=== PATIENT | male | born 1955 ===

== ENCOUNTER 2016-12-13 09:08 | Inpatient (IN) | payer MEDICAID, MEDICARE ==
[2016-12-08 12:41] VITALS: BMI 45.4
[2016-12-13] MEDS ORDERED: Bupivacaine HCl 0.25% PF (10 ml) Inj ONE (10:34)
[2016-12-13] MEDS ORDERED: ceFAZolin 1 gm FROZEN Premix 0 GM/0 ML ML IVPB ONE (10:35)
[2016-12-13] MEDS ORDERED: Lactated Ringer's 1,000 ML IV ONE ×2 (11:23→13:01)
[2016-12-13] MEDS ORDERED: ceFAZolin 1 gm FROZEN Premix 2 GM/100 ML ML IVPB ONE (11:35)
[2016-12-13] MEDS ORDERED: Propofol 10 mg/ml Inj (20 ML) ONE ×2 (11:35→12:59)
[2016-12-13] MEDS ORDERED: Midazolam 2 MG/2 ML VIAL ONE (11:35)
[2016-12-13] MEDS ORDERED: ePHEDrine 50 mg/ml Inj ONE (12:27)
[2016-12-13] MEDS ORDERED: Rocuronium 10 mg/ml (5 ml) ONE (12:28)
[2016-12-13] MEDS ORDERED: HYDROmorphone 0.5 mg/0.5 ml ISec IVP PRN (13:47)
[2016-12-13] MEDS ORDERED: Oxycodone/Acetaminophen 5/325 mg Tab PO PRN (14:00)
[2016-12-13] MEDS ORDERED: Neostigmine Methylsulfate 3mg/3ml Syringe IV ONE (14:15)
[2016-12-13] MEDS ORDERED: HYDROmorphone 0.5 mg/0.5 ml ISec IVP ONE (14:34)
--- NOTE | 2016-12-13 14:48 | OP ---
PROCEDURE DATE: 12/13/2016 PREOPERATIVE DIAGNOSIS: Large right inguinal scrotal hernia. POSTOPERATIVE DIAGNOSIS: Large right inguinal scrotal hernia. PROCEDURE PERFORMED: Complex repair of large right inguinal scrotal hernia with mesh, removal of cor d lipoma, repair of a testicular blood vessel. SURGEON: Lio Fonseca MD. BOILER FITTER: Dr. Mckeon. ANESTHESIA: General. ESTIMATED BLOOD LOSS: 100 mL. POSTOPERATIVE CONDITION: Stable. INDICATIONS FOR SURGERY: This is a 60-year-old morbidly obese Carl male with a mass of right inguin al scrotal hernia, which he states he has had for 25 years. The patient recently got insurance and n ow wants to have it fixed. He complains of obvious pain from the site. GROSS FINDINGS: There was a mass of right inguinal scrotal hernia. It contained a large amount of o mentum. An omentectomy had to be performed in order to reduce the hernia. It was a very difficult r epair and 3 hernia plugs had to be sewn together because the hernia floor was basically obliterated. PROCEDURE: The patient taken to the operating room and placed in the supine position. His pannus wa s taped cephalad and out of the inguinal region. A standard very large inguinal incision was made. The external oblique aponeurosis was opened and the massive hernia was encountered. Using careful bl unt dissection within the scrotal sac, the hernia along with the testicle were delivered from the sac , testicle being closely associated with the hernia. The appropriate plane was found in the testicul ar contents and the testicle was dissected off of the hernia sac back into the scrotum. The sac was then opened and the omentectomy was performed using an Endo cautery device. The hernia sac was also transected using the same device. Once everything was reduced, there was a cord lipoma noted and thi s was excised and sent for specimen. The hernia contents were carefully and meticulously reduced int o the abdomen. Three hernia plugs, extra-large ProLoop mesh, was sewn together for the hernia repair and placed in the hernia defect. Careful repair was performed sewing the plug to the conjoined tend on superiorly, pubic tubercle laterally and the iliopubic tract inferiorly. Once the repair had been completely done, it was inspected and found to be adequate. The wound was irrigated with copious am ounts of saline solution. Bleeding testicular vessel was repaired and flow was confirmed by Doppler. A Ron drain was left in the scrotal sac due to the large potential space from the hernia site. T he wound was irrigated with copious amounts of saline solution and closed in layers. To close the de ad space, it was widely mobilized and adjacent tissue transfer closure was performed by using multipl e layers of Monocryl, subcuticular Monocryl, and skin clips. The patient tolerated the procedure wel l, returned to recovery room in stable condition. Lio Fonseca MD cc: [id number] TT: 12/13/2016 14:47:30 rain
--- NOTE | 2016-12-13 17:16 | CP.PCM.CON ---
History of Present Illness - History of Present Illness History of Present Illness: Medical Consult Note- Dr Blank's service HPI: 60 year old male with PMHx of HTN and DM presents s/p right inguinal hernia repair today with Dr Fonseca. Medicine team was consulted for medical management. Patient states that he first developed his right inguinal hernia 25 years ago when he was lifting heavy donal material. The hernia recently started to cause him pain so he decided to get it surgically repaired. Patient states that he feels well overall after the surgery and does not have abdominal pain while at rest. Patient's abdominal pain presents with any type of movement. Denies fever, chills, nausea, vomiting, diarrhea, chest pain, palpitations, shortness of breath, leg pain, numbness, tingling, headache, dizziness, confusion, and cough. 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 absent: Chills, Fever - EENT Eyes: As Per HPI. absent: Blurred Vision, Change in Vision Ears: As Per HPI. absent: Dizziness Nose/Mouth/Throat: As Per HPI. absent: Sore Throat - Cardiovascular Cardiovascular: As Per HPI. absent: Chest Pain, Dyspnea, Edema, Lightheadedness , Palpitations - Respiratory Respiratory: As Per HPI. absent: Cough, Dyspnea, Wheezing - Gastrointestinal Gastrointestinal: As Per HPI, Abdominal Pain. absent: Diarrhea, Nausea, Vomiting - Genitourinary Genitourinary: As Per HPI. absent: Dysuria - Musculoskeletal Musculoskeletal: As Per HPI. absent: Muscle Weakness, Numbness, Tingling - Integumentary Integumentary: As Per HPI. absent: Rash - Neurological Neurological: As Per HPI. absent: Dizziness, Headaches, Weakness - Psychiatric Psychiatric: As Per HPI Past Patient History - Past Medical History & Family History Past Medical History?: Yes - Past Social History Smoking Status: Former Smoker - CARDIAC Hx Cardiac Disorders: Yes Hx Hypertension: Yes - PULMONARY Hx Respiratory Disorders: Yes Other/Comment: HX: "BRONCHIAL ASTHMA"-NEVER HOSPITALIZED-NO INHALERS - NEUROLOGICAL Hx Neurological Disorder: Yes Hx Vertigo: Yes - HEENT Hx HEENT Problems: No - RENAL Hx Chronic Kidney Disease: No - ENDOCRINE/METABOLIC Hx Endocrine Disorders: Yes Hx Diabetes Mellitus Type 1: Yes - HEMATOLOGICAL/ONCOLOGICAL Hx Blood Disorders: No - INTEGUMENTARY Hx Dermatological Problems: Yes Other/Comment: HX: INJURY (CUT) TO LEFT OUTER FOREARM-STICHES DONE-WOUND WELL HEALED. - MUSCULOSKELETAL/RHEUMATOLOGICAL Hx Musculoskeletal Disorders: Yes Hx Back Pain: Yes - GASTROINTESTINAL Hx Gastrointestinal Disorders: No - GENITOURINARY/GYNECOLOGICAL Hx Genitourinary Disorders: Yes Other/Comment: Inguinal Hernia, Right - PSYCHIATRIC Hx Psychophysiologic Disorder: No - SURGICAL HISTORY Hx Surgeries: No - ANESTHESIA Hx Anesthesia: No Has any member of the family had a problem w/ anesthesia?: No Meds Allergies/Adverse Reactions: Allergies Allergy/AdvReac Type Severity Reaction Status Date / Time No Known Allergies Allergy Verified 12/08/16 12:39 - Medications Medications: Current Medications Docusate Sodium (Colace) 100 mg PO BID [facility] Enoxaparin Sodium (Lovenox) 40 mg SC DAILY [facility] Hydromorphone HCl (Dilaudid) 0.5 mg IVP Q15M PRN PRN Reason: Pain, severe (8-10) Last Admin: 12/13/16 14:10 Dose: 0.5 mg Ketorolac Tromethamine (Toradol) 30 mg IVP Q6 PRN PRN Reason: pain Stop: 12/18/16 14:01 Oxycodone/Acetaminophen (Percocet 5/325 Mg Tab) 2 tab PO Q4H PRN PRN Reason: pain Stop: 12/16/16 14:01 Pantoprazole Sodium (Protonix Inj) 40 mg IVP DAILY [facility] Physical Exam - Constitutional Appears: Well, Non-toxic, No Acute Distress - Head Exam Head Exam: ATRAUMATIC, NORMOCEPHALIC - Eye Exam Eye Exam: EOMI, Normal appearance, PERRL - ENT Exam ENT Exam: Mucous Membranes Moist, Normal Exam - Neck Exam Neck exam: Positive for: Normal Inspection - Respiratory Exam Respiratory Exam: Clear to Auscultation Bilateral, NORMAL BREATHING PATTERN. absent: Rales, Rhonchi, Wheezes, Respiratory Distress - Cardiovascular Exam Cardiovascular Exam: REGULAR RHYTHM, +S1, +S2. absent: Irregular Rhythm, Systolic Murmur - GI/Abdominal Exam GI & Abdominal Exam: Normal Bowel Sounds, Soft, Tenderness (ttp of right abdomen and close to inguinal incision sit ). absent: Distended, Firm, Guarding Additional comments: Germain drain in right lower abdomen with serosangenous fluid, dressing dry and intact - Extremities Exam Extremities exam: Positive for: full ROM, normal inspection, pedal pulses present. Negative for: pedal edema, tenderness - Neurological Exam Neurological exam: Alert, CN II-XII Intact, Oriented x3 - Psychiatric Exam Psychiatric exam: Normal Affect, Normal Mood - Skin Skin Exam: Dry, Intact, Normal Color, Warm Results - Vital Signs Recent Vital Signs: Last Vital Signs Temp 97.4 F L 12/13/16 13:44 Pulse 77 12/13/16 16:00 Resp 18 12/13/16 16:00 BP 115/59 L 12/13/16 16:00 Pulse Ox 99 12/13/16 16:00 - Labs Labs: Laboratory Results - last 24 hr 12/13/16 09:43 POC Glucose (mg/dL) 122 H Assessment & Plan - Assessment and Plan (Free Text) Assessment: 1. HTN Patient's bp controlled today without medication Will start home meds tomorrow: Norvasc 5mg PO daily, HCTZ 25mg PO daily, Lisinopril 30mg PO daily (with holding parameters) Monitor and adjust meds as needed 2. DM ISS Accuchecks Glipizide 5mg PO BID Metformin 500mg PO daily 3. Vertigo Currently asymptomatic Meclizine 25mg PO daily prn 4. Asthma Patient does not take any home medications Currently well controlled, no acute intervention Monitor and will start meds if needed 5. Right inguinal hernia s/p right inguinal hernia repair management per Dr Fonseca Monitor germain drain output Pain management Liquid diet and advance to full diet tomorrow PT eval 6. Prophylactic measures Lovenox 40mg SC daily Protonix 40mg IV daily Colace 100mg PO BID [facility]
[2016-12-13] MEDS: GlipiZIDE 5 mg SR Tab PO SCH (18:11)
[2016-12-13] MEDS: (Novolin R) Insulin Human Regular 100 units/ml vial SC SCH (21:41)
[2016-12-14 06:16] LABS: BASO % 0.3 % (0.0-2.0); EOS % 0.1 % (0.0-4.0); LYMPH # 2.6 K/uL (1.0-4.3); LYMPH % 23.1 % (20.0-40.0); MEAN CELL VOLUME 82.1 fL (80.0-94.0); MEAN CORPUSCULAR HEMOGLOBIN 27.6 pg (27.0-31.0); MEAN CORPUSCULAR HGB CONC 33.6 g/dL (33.0-37.0); MEAN PLATELET VOLUME 9.7 fL (7.2-11.7); MONO # 1.7 K/uL (0.0-0.8); MONO % 14.5 % (0.0-10.0); NRBC % 0.1 % (0.0-2.0); RED CELL DISTRIBUTION WIDTH 13.5 % (11.5-14.5); WHITE BLOOD COUNT 11.4 K/uL (4.8-10.8)
[2016-12-14 07:48] LABS: CHLORIDE 97 mmol/L (98-107); POTASSIUM 3.8 mmol/L (3.6-5.2); SODIUM 134 mmol/L (132-148)
[2016-12-14 07:51] LABS: BLOOD UREA NITROGEN 21 mg/dL (9-20); CARBON DIOXIDE 26 mmol/L (22-30); GFR AFRICAN-AMERICAN > 60
[2016-12-14 07:52] LABS: CALCIUM 8.2 mg/dl (8.6-10.4); GLUCOSE,RANDOM 219 mg/dL (75-110)
[2016-12-14] MEDS: (Novolin R) Insulin Human Regular 100 units/ml vial SC SCH ×4 (08:35→21:53)
[2016-12-14] MEDS: GlipiZIDE 5 mg SR Tab PO SCH ×2 (10:04→17:17)
[2016-12-14] MEDS: Enoxaparin 40 mg Syringe SC SCH (10:07)
[2016-12-14] MEDS: Oxycodone/Acetaminophen 5/325 mg Tab PO PRN ×2 (10:11→17:27)
--- NOTE | 2016-12-14 12:24 | CP.PCM.PN ---
Subjective - Date & Time of Evaluation Date of Evaluation: 12/14/16 Time of Evaluation: 12:00 - Subjective Subjective: resting in bed comfortabbly dressing w dried blood PE unremarkable HERMILA in place stable pod#1 mobilize nurses to change dressing Objective - Vital Signs/Intake and Output Vital Signs (last 24 hours): Temp Pulse Resp BP Pulse Ox 97.3 F L 79 18 95/65 L 96 12/14/16 07:40 12/14/16 07:40 12/14/16 07:40 12/14/16 07:40 12/14/16 07:40 Intake and Output: 12/14/16 12/14/16 06:59 18:59 Intake Total 870 Output Total 950 Balance -80 - Medications Medications: Current Medications Amlodipine Besylate (Norvasc) 5 mg PO DAILY [facility] Docusate Sodium (Colace) 100 mg PO BID [facility] Last Admin: 12/14/16 10:04 Dose: 100 mg Enoxaparin Sodium (Lovenox) 40 mg SC DAILY [facility] Last Admin: 12/14/16 10:07 Dose: 40 mg Glipizide (Glucotrol Xl) 5 mg PO BID [facility] Last Admin: 12/14/16 10:04 Dose: 5 mg Hydrochlorothiazide (Hydrodiuril) 25 mg PO DAILY [facility] Hydromorphone HCl (Dilaudid) 0.5 mg IVP Q15M PRN PRN Reason: Pain, severe (8-10) Last Admin: 12/13/16 14:10 Dose: 0.5 mg Insulin Human Regular (Novolin R) 0 unit SC ACHS [facility] PRN Reason: Protocol Last Admin: 12/14/16 08:35 Dose: 3 unit Ketorolac Tromethamine (Toradol) 30 mg IVP Q6 PRN PRN Reason: pain Stop: 12/18/16 14:01 Lisinopril (Zestril) 30 mg PO DAILY [facility] Meclizine HCl (Antivert) 25 mg PO DAILY [facility] Metformin HCl (Glucophage Xr) 500 mg PO DAILY [facility] Last Admin: 12/14/16 10:06 Dose: 500 mg Oxycodone/Acetaminophen (Percocet 5/325 Mg Tab) 2 tab PO Q4H PRN PRN Reason: pain Stop: 12/16/16 10:01 Last Admin: 04/27/17 10:11 Dose: 2 tab Pantoprazole Sodium (Protonix Inj) 40 mg IVP DAILY [facility] Last Admin: 12/14/16 10:03 Dose: 40 mg Pneumococcal Polyvalent Vaccine (Pneumovax 23 Vaccine) 0.5 ml SC .ONCE ONE Stop: 12/16/16 10:01 - Labs Labs: 12/14/16 06:09 12/14/16 06:09
[2016-12-14] MEDS: Bacitracin Ointment 30 GM TUBE TOP SCH (13:45)
--- NOTE | 2016-12-14 14:06 | CP.PCM.PN ---
<Tyree Young - Last Filed: 12/14/16 14:06> Subjective - Date & Time of Evaluation Date of Evaluation: 12/14/16 Time of Evaluation: 07:10 - Subjective Subjective: PGY-1 Medicine Progress Note for Dr. Blank Patient seen and examined at bedside. no acute event overnight. Patient is resting comfortably in bed. He is POD #1 right inguinal hernia repair. Patient stated that pain is well controlled with medication. Patient is tolerating diet and had a BM yesterday. SIENA drain in place with minimal drainage. Denied fever/ chills, cp, sob, palpitations, abd pain, n/v/d, incontinence and constipation. Objective - Vital Signs/Intake and Output Vital Signs (last 24 hours): Temp Pulse Resp BP Pulse Ox 97.3 F L 79 18 95/65 L 96 12/14/16 07:40 12/14/16 07:40 12/14/16 07:40 12/14/16 07:40 12/14/16 07:40 Intake and Output: 12/14/16 12/14/16 06:59 18:59 Intake Total 870 Output Total 950 10 Balance -80 -10 - Medications Medications: Current Medications Amlodipine Besylate (Norvasc) 5 mg PO DAILY [facility] Bacitracin (Bacitracin) 0 gm TOP DAILY [facility] Docusate Sodium (Colace) 100 mg PO BID [facility] Last Admin: 12/14/16 10:04 Dose: 100 mg Enoxaparin Sodium (Lovenox) 40 mg SC DAILY [facility] Last Admin: 12/14/16 10:07 Dose: 40 mg Glipizide (Glucotrol Xl) 5 mg PO BID [facility] Last Admin: 12/14/16 10:04 Dose: 5 mg Hydrochlorothiazide (Hydrodiuril) 25 mg PO DAILY [facility] Hydromorphone HCl (Dilaudid) 0.5 mg IVP Q15M PRN PRN Reason: Pain, severe (8-10) Last Admin: 12/13/16 14:10 Dose: 0.5 mg Insulin Human Regular (Novolin R) 0 unit SC ACHS [facility] PRN Reason: Protocol Last Admin: 12/14/16 12:30 Dose: 2 unit Ketorolac Tromethamine (Toradol) 30 mg IVP Q6 PRN PRN Reason: pain Stop: 12/18/16 14:01 Lisinopril (Zestril) 30 mg PO DAILY [facility] Meclizine HCl (Antivert) 25 mg PO DAILY [facility] Last Admin: 12/14/16 10:00 Dose: 25 mg Metformin HCl (Glucophage Xr) 500 mg PO DAILY [facility] Last Admin: 12/14/16 10:06 Dose: 500 mg Oxycodone/Acetaminophen (Percocet 5/325 Mg Tab) 2 tab PO Q4H PRN PRN Reason: pain Stop: 12/16/16 10:01 Last Admin: 12/14/16 10:11 Dose: 2 tab Pantoprazole Sodium (Protonix Inj) 40 mg IVP DAILY [facility] Last Admin: 12/14/16 10:03 Dose: 40 mg Pneumococcal Polyvalent Vaccine (Pneumovax 23 Vaccine) 0.5 ml SC .ONCE ONE Stop: 12/16/16 10:01 - Labs Labs: 12/14/16 06:09 12/14/16 06:09 - Constitutional Appears: No Acute Distress - Head Exam Head Exam: ATRAUMATIC, NORMOCEPHALIC - Eye Exam Eye Exam: EOMI, Normal appearance Pupil Exam: PERRL - ENT Exam ENT Exam: Mucous Membranes Moist - Neck Exam Neck Exam: Normal Inspection - Respiratory Exam Respiratory Exam: Clear to Ausculation Bilateral, NORMAL BREATHING PATTERN - Cardiovascular Exam Cardiovascular Exam: REGULAR RHYTHM, +S1, +S2 - GI/Abdominal Exam GI & Abdominal Exam: Soft, Normal Bowel Sounds. absent: Distended, Guarding, Rigid, Tenderness, Rebound - Extremities Exam Extremities Exam: Normal Capillary Refill, Tenderness (bilateral inguinal area) . absent: Calf Tenderness Additional comments: dressing clean, dry and intact, without evidence of heamtoma or erythema r siena drain miminal output - Back Exam Back Exam: absent: CVA tenderness (L), CVA tenderness (R) - Neurological Exam Neurological Exam: Alert, Awake, CN II-XII Intact, Oriented x3 - Psychiatric Exam Psychiatric exam: Normal Affect, Normal Mood - Skin Skin Exam: Dry, Intact, Normal Color, Warm Assessment and Plan - Assessment and Plan (Free Text) Plan: 1. HTN Patient's bp low without medication, 95/65 Will hold home meds for now: Norvasc 5mg PO daily, HCTZ 25mg PO daily, Lisinopril 30mg PO daily (with holding parameters) Monitor and adjust meds as needed 2. DM ISS Accuchecks Glipizide 5mg PO BID Metformin 500mg PO daily 3. Vertigo Currently asymptomatic Meclizine 25mg PO daily prn 4. Asthma Patient does not take any home medications Currently well controlled, no acute intervention Monitor and will start meds if needed 5. Right inguinal hernia POD #1 s/p right inguinal hernia repair management per Dr Fonseca Monitor egrmain drain output Pain management regular diet PT eval 6. Prophylactic measures Lovenox 40mg SC daily Protonix 40mg IV daily Colace 100mg PO BID [facility] <Gildardo Blank Jr. - Last Filed: 12/17/16 13:56> Objective - Vital Signs/Intake and Output Vital Signs (last 24 hours): Temp Pulse Resp BP Pulse Ox 98.7 F 75 20 122/80 96 12/16/16 08:25 12/16/16 08:25 12/16/16 08:25 12/16/16 08:25 12/16/16 08:25 - Labs Labs: 12/16/16 08:01 12/16/16 08:01 Attending/Attestation - Attestation I have personally seen and examined this patient.: Yes I have fully participated in the care of the patient.: Yes I have reviewed all pertinent clinical information, including history, physical exam and plan: Yes Notes (Text): 12/17/16 13:56 Agree with findings and plan
[2016-12-15] MEDS: (Novolin R) Insulin Human Regular 100 units/ml vial SC SCH ×4 (08:27→22:01)
[2016-12-15] MEDS: Oxycodone/Acetaminophen 5/325 mg Tab PO PRN ×2 (08:45→21:59)
[2016-12-15] MEDS: Enoxaparin 40 mg Syringe SC SCH (09:45)
[2016-12-15] MEDS: GlipiZIDE 5 mg SR Tab PO SCH ×2 (09:46→17:32)
[2016-12-15] MEDS: Bacitracin Ointment 30 GM TUBE TOP SCH (09:47)
[2016-12-15 11:22] LABS: BASO % 0.4 % (0.0-2.0); EOS # 0.1 K/uL (0.0-0.7); EOS % 0.8 % (0.0-4.0); HEMATOCRIT 37.6 % (35.0-51.0); LYMPH # 2.3 K/uL (1.0-4.3); LYMPH % 19.5 % (20.0-40.0); MEAN CORPUSCULAR HEMOGLOBIN 27.6 pg (27.0-31.0); MEAN CORPUSCULAR HGB CONC 33.7 g/dL (33.0-37.0); MEAN PLATELET VOLUME 9.9 fL (7.2-11.7); MONO # 1.3 K/uL (0.0-0.8); MONO % 10.7 % (0.0-10.0); RED CELL DISTRIBUTION WIDTH 13.5 % (11.5-14.5); WHITE BLOOD COUNT 11.7 K/uL (4.8-10.8)
[2016-12-15 11:33] LABS: CHLORIDE 97 mmol/L (98-107); SODIUM 135 mmol/L (132-148)
[2016-12-15 11:34] LABS: POTASSIUM 3.5 mmol/L (3.6-5.2)
[2016-12-15 11:36] LABS: ALB/GLOB RATIO 1.1 (1.0-2.1); ALKALINE PHOSPHATASE 68 U/L (38-126); ALT/SGPT 31 U/L (21-72); AST/SGOT 24 U/L (17-59); BILIRUBIN,TOTAL 1.3 mg/dL (0.2-1.3); BLOOD UREA NITROGEN 23 mg/dL (9-20); CARBON DIOXIDE 25 mmol/L (22-30); GFR AFRICAN-AMERICAN > 60; GLUCOSE,RANDOM 258 mg/dL (75-110); TOTAL PROTEIN 6.9 g/dL (6.3-8.3)
[2016-12-15 11:37] LABS: CALCIUM 8.3 mg/dl (8.6-10.4)
[2016-12-15] MEDS ORDERED: Potassium Chloride 20 mEq ER Tab PO ONE (14:30)
--- NOTE | 2016-12-15 16:50 | CP.PCM.PN ---
<Cody Tucker - Last Filed: 12/16/16 01:29> Subjective - Date & Time of Evaluation Date of Evaluation: 12/15/16 Time of Evaluation: 07:50 - Subjective Subjective: PGY-1 Medicine Progress Note for Dr. Blank Patient seen and examined at bedside. No acute event overnight. Patient is resting comfortably in bed. He is POD #2 right inguinal hernia repair. Patient stated that pain is well controlled with medication. Patient is tolerating diet and passing gas, with a BM two days ago. He complains of abdominal pain that is improving, subjective fevers and cough. Pt. deneis chills, cp, sob, palpitations , N/V/D, or any GI/ symptoms. Objective - Vital Signs/Intake and Output Vital Signs (last 24 hours): Temp Pulse Resp BP Pulse Ox 98.7 F 93 H 14 135/87 94 L 12/15/16 09:41 12/15/16 09:41 12/15/16 09:41 12/15/16 09:41 12/15/16 09:41 Intake and Output: 12/15/16 12/15/16 06:59 18:59 Intake Total 320 420 Output Total 20 Balance 300 420 - Medications Medications: Current Medications Amlodipine Besylate (Norvasc) 5 mg PO DAILY [facility] Bacitracin (Bacitracin) 0 gm TOP DAILY [facility] Last Admin: 12/15/16 09:47 Dose: 1 applic Docusate Sodium (Colace) 100 mg PO BID [facility] Last Admin: 12/15/16 09:46 Dose: 100 mg Enoxaparin Sodium (Lovenox) 40 mg SC DAILY [facility] Last Admin: 12/15/16 09:45 Dose: 40 mg Glipizide (Glucotrol Xl) 5 mg PO BID [facility] Last Admin: 12/15/16 09:46 Dose: 5 mg Hydrochlorothiazide (Hydrodiuril) 25 mg PO DAILY [facility] Hydromorphone HCl (Dilaudid) 0.5 mg IVP Q15M PRN PRN Reason: Pain, severe (8-10) Last Admin: 12/13/16 14:10 Dose: 0.5 mg Insulin Human Regular (Novolin R) 0 unit SC ACHS [facility] PRN Reason: Protocol Last Admin: 12/15/16 12:32 Dose: 3 unit Ketorolac Tromethamine (Toradol) 30 mg IVP Q6 PRN PRN Reason: pain Stop: 12/18/16 14:01 Lisinopril (Zestril) 30 mg PO DAILY [facility] Meclizine HCl (Antivert) 25 mg PO DAILY [facility] Last Admin: 12/15/16 09:46 Dose: 25 mg Metformin HCl (Glucophage Xr) 500 mg PO DAILY [facility] Last Admin: 12/15/16 09:46 Dose: 500 mg Oxycodone/Acetaminophen (Percocet 5/325 Mg Tab) 2 tab PO Q4H PRN PRN Reason: pain Stop: 12/16/16 10:01 Last Admin: 12/15/16 08:45 Dose: 2 tab Pantoprazole Sodium (Protonix Inj) 40 mg IVP DAILY [facility] Last Admin: 12/15/16 09:45 Dose: 40 mg Pneumococcal Polyvalent Vaccine (Pneumovax 23 Vaccine) 0.5 ml SC .ONCE ONE Stop: 12/16/16 10:01 - Labs Labs: 12/15/16 11:09 12/15/16 11:09 - Constitutional Appears: Non-toxic, No Acute Distress - Head Exam Head Exam: ATRAUMATIC, NORMOCEPHALIC - Eye Exam Eye Exam: EOMI - ENT Exam ENT Exam: Mucous Membranes Moist - Neck Exam Neck Exam: Full ROM, Normal Inspection. absent: Lymphadenopathy - Respiratory Exam Respiratory Exam: Clear to Ausculation Bilateral, NORMAL BREATHING PATTERN - Cardiovascular Exam Cardiovascular Exam: REGULAR RHYTHM, +S1, +S2. absent: JVD - GI/Abdominal Exam GI & Abdominal Exam: Soft, Tenderness, Normal Bowel Sounds - Extremities Exam Extremities Exam: Normal Capillary Refill - Neurological Exam Neurological Exam: Alert, Awake, Oriented x3 - Psychiatric Exam Psychiatric exam: Normal Affect, Normal Mood - Skin Skin Exam: Dry, Intact, Normal Color, Warm Assessment and Plan - Assessment and Plan (Free Text) Plan: 1. HTN Patient's bp increased to 125-143/82-86, will still hold BP meds Norvasc 5mg PO daily, HCTZ 25mg PO daily, Lisinopril 30mg PO daily (with holding parameters) Monitor and adjust meds as needed 2. DM ISS Accuchecks Glipizide 5mg PO BID Metformin 500mg PO daily 3. Vertigo Complains of dizziness added PRN order of Meclizine Meclizine 25mg PO daily [facility] Meclizine 25mg PO BID PRN 4. Asthma Patient does not take any home medications Currently well controlled, no acute intervention Monitor and will start meds if needed 5. Right inguinal hernia POD #2 s/p right inguinal hernia repair management per Dr Fonseca Monitor germain drain output Pain management regular diet PT eval 6. Prophylactic measures Lovenox 40mg SC daily Protonix 40mg IV daily Colace 100mg PO BID [facility] dispo possible d/c tomorrow <Gildardo Blank Jr. - Last Filed: 12/17/16 13:58> Objective - Vital Signs/Intake and Output Vital Signs (last 24 hours): Temp Pulse Resp BP Pulse Ox 98.7 F 75 20 122/80 96 12/16/16 08:25 12/16/16 08:25 12/16/16 08:25 12/16/16 08:25 12/16/16 08:25 - Labs Labs: 12/16/16 08:01 12/16/16 08:01 Attending/Attestation - Attestation I have personally seen and examined this patient.: Yes I have fully participated in the care of the patient.: Yes I have reviewed all pertinent clinical information, including history, physical exam and plan: Yes Notes (Text): 12/17/16 13:58 Agree with findings and plan
[2016-12-15 17:04] VITALS: RESP 20
[2016-12-16] MEDS: (Novolin R) Insulin Human Regular 100 units/ml vial SC SCH ×3 (07:30→12:05)
[2016-12-16 08:08] LABS: BASO % 0.5 % (0.0-2.0); EOS # 0.1 K/uL (0.0-0.7); EOS % 1.6 % (0.0-4.0); HEMATOCRIT 35.4 % (35.0-51.0); LYMPH # 1.9 K/uL (1.0-4.3); LYMPH % 20.7 % (20.0-40.0); MEAN CORPUSCULAR HEMOGLOBIN 27.7 pg (27.0-31.0); MEAN CORPUSCULAR HGB CONC 33.7 g/dL (33.0-37.0); MEAN PLATELET VOLUME 9.9 fL (7.2-11.7); MONO # 1.2 K/uL (0.0-0.8); MONO % 12.5 % (0.0-10.0); NRBC % 0.4 % (0.0-2.0); RED CELL DISTRIBUTION WIDTH 13.3 % (11.5-14.5); WHITE BLOOD COUNT 9.2 K/uL (4.8-10.8)
[2016-12-16 08:26] VITALS: BP 122/80; PULSE 75; TEMP 98.7; O2SAT 96
[2016-12-16 08:28] LABS: CHLORIDE 97 mmol/L (98-107); POTASSIUM 3.5 mmol/L (3.6-5.2); SODIUM 136 mmol/L (132-148)
[2016-12-16 08:30] LABS: AST/SGOT 21 U/L (17-59); BILIRUBIN,TOTAL 1.1 mg/dL (0.2-1.3); CARBON DIOXIDE 26 mmol/L (22-30); GFR AFRICAN-AMERICAN > 60; TOTAL PROTEIN 6.4 g/dL (6.3-8.3)
[2016-12-16 08:31] LABS: ALKALINE PHOSPHATASE 65 U/L (38-126); ALT/SGPT 24 U/L (21-72); BLOOD UREA NITROGEN 20 mg/dL (9-20); GLUCOSE,RANDOM 123 mg/dL (75-110)
[2016-12-16] MEDS ORDERED: Potassium Chloride 20 mEq ER Tab PO STA ×2 (08:59→10:53)
--- NOTE | 2016-12-16 09:03 | CP.PCM.PN ---
<JocelyneSilvia - Last Filed: 12/16/16 13:19> Subjective - Date & Time of Evaluation Date of Evaluation: 12/16/16 Time of Evaluation: 08:59 - Subjective Subjective: Patient seen and examined at bedside. No acute events overnight. Patient is POD# 3 s/p right inguinal hernia repair. He reports mild pain to right inguinal region. He is ambulating well. Patient reports normal bowel movements and has no difficulty with urination. Patient states he is tolerating diet well. He denies nausea and vomiting. Patient also denies dizziness, chest pain, and shortness of breath. Patient to be discharged today by Dr. Fonseca with plan to follow-up in his office as an outpatient. Objective - Vital Signs/Intake and Output Vital Signs (last 24 hours): Temp Pulse Resp BP Pulse Ox 98.7 F 75 20 122/80 96 12/16/16 08:25 12/16/16 08:25 12/16/16 08:25 12/16/16 08:25 12/16/16 08:25 Intake and Output: 12/16/16 12/16/16 06:59 18:59 Intake Total 350 Balance 350 - Medications Medications: Current Medications Amlodipine Besylate (Norvasc) 5 mg PO DAILY [facility] Bacitracin (Bacitracin) 0 gm TOP DAILY [facility] Last Admin: 12/15/16 09:47 Dose: 1 applic Docusate Sodium (Colace) 100 mg PO BID [facility] Last Admin: 12/15/16 17:32 Dose: 100 mg Enoxaparin Sodium (Lovenox) 40 mg SC DAILY [facility] Last Admin: 12/15/16 09:45 Dose: 40 mg Glipizide (Glucotrol Xl) 5 mg PO BID [facility] Last Admin: 12/15/16 17:32 Dose: 5 mg Hydrochlorothiazide (Hydrodiuril) 25 mg PO DAILY [facility] Hydromorphone HCl (Dilaudid) 0.5 mg IVP Q15M PRN PRN Reason: Pain, severe (8-10) Last Admin: 12/13/16 14:10 Dose: 0.5 mg Insulin Human Regular (Novolin R) 0 unit SC ACHS [facility] PRN Reason: Protocol Last Admin: 12/15/16 22:01 Dose: Not Given Ketorolac Tromethamine (Toradol) 30 mg IVP Q6 PRN PRN Reason: pain Stop: 12/18/16 14:01 Lisinopril (Zestril) 30 mg PO DAILY [facility] Meclizine HCl (Antivert) 25 mg PO DAILY [facility] Last Admin: 12/15/16 09:46 Dose: 25 mg Meclizine HCl (Antivert) 25 mg PO BID PRN PRN Reason: Dizziness Metformin HCl (Glucophage Xr) 500 mg PO DAILY [facility] Last Admin: 12/15/16 09:46 Dose: 500 mg Oxycodone/Acetaminophen (Percocet 5/325 Mg Tab) 2 tab PO Q4H PRN PRN Reason: pain Stop: 12/16/16 10:01 Last Admin: 12/15/16 21:59 Dose: 2 tab Pantoprazole Sodium (Protonix Inj) 40 mg IVP DAILY [facility] Last Admin: 12/15/16 09:45 Dose: 40 mg Pneumococcal Polyvalent Vaccine (Pneumovax 23 Vaccine) 0.5 ml SC .ONCE ONE Stop: 12/16/16 10:01 - Labs Labs: 12/16/16 08:01 12/16/16 08:01 - Constitutional Appears: Non-toxic, No Acute Distress, Other (Obese) - Head Exam Head Exam: ATRAUMATIC, NORMAL INSPECTION, NORMOCEPHALIC - Eye Exam Eye Exam: EOMI, Normal appearance, PERRL - ENT Exam ENT Exam: Mucous Membranes Moist - Neck Exam Neck Exam: Normal Inspection - Respiratory Exam Respiratory Exam: Clear to Ausculation Bilateral, NORMAL BREATHING PATTERN. absent: Rales, Rhonchi, Wheezes - Cardiovascular Exam Cardiovascular Exam: +S1, +S2. absent: Tachycardia - GI/Abdominal Exam GI & Abdominal Exam: Soft, Normal Bowel Sounds. absent: Firm - Exam Additional comments: dressing clean dry and intact to right inguinal region - Extremities Exam Extremities Exam: Normal Inspection. absent: Pedal Edema, Tenderness - Neurological Exam Neurological Exam: Alert, Awake, Oriented x3 - Psychiatric Exam Psychiatric exam: Normal Affect, Normal Mood - Skin Skin Exam: Intact, Normal Color, Warm Assessment and Plan - Assessment and Plan (Free Text) Assessment: 1. HTN Normotensive Continue home medications: Norvasc 5mg PO daily, HCTZ 25mg PO daily, Lisinopril 30mg PO daily Follow-up with PMD for blood pressure check Monitor and adjust meds as needed 2. DM Glucose 123 ISS Accuchecks Glipizide 5mg PO BID Metformin 500mg PO daily 3. Vertigo Complains of dizziness added PRN order of Meclizine Meclizine 25mg PO daily PATRICK Meclizine 25mg PO BID PRN 4. Asthma Patient does not take any home medications Currently well controlled, no acute intervention Monitor and will start meds if needed 5. Right inguinal hernia POD #3 s/p right inguinal hernia repair management per Dr Fonseca Monitor germain drain output Pain management regular diet PT eval 6. Prophylactic measures Lovenox 40mg SC daily Protonix 40mg IV daily Colace 100mg PO BID SCDs 7. Dispo Patient to be discharged today per Dr. Fonseca Patient instructed to shower BID and wash wound with soap/water starting 12/17 Discharged with Tramadol for pain Cover wound with 4x4 pads and tape Instructed to walk frequenly No heavy lifting <Gildardo Blank Jr. - Last Filed: 12/17/16 13:59> Objective - Vital Signs/Intake and Output Vital Signs (last 24 hours): Temp Pulse Resp BP Pulse Ox 98.7 F 75 20 122/80 96 12/16/16 08:25 12/16/16 08:25 12/16/16 08:25 12/16/16 08:25 12/16/16 08:25 - Labs Labs: 12/16/16 08:01 12/16/16 08:01 Attending/Attestation - Attestation I have personally seen and examined this patient.: Yes I have fully participated in the care of the patient.: Yes I have reviewed all pertinent clinical information, including history, physical exam and plan: Yes Notes (Text): 12/17/16 13:59 Agree with findings and plan
[2016-12-16] MEDS ORDERED: Pneumococcal 23-Valent Vaccine SC ONE (10:00)
[2016-12-16] MEDS: GlipiZIDE 5 mg SR Tab PO SCH (10:17)
[2016-12-16] MEDS: Enoxaparin 40 mg Syringe SC SCH (10:18)
[2016-12-16] MEDS: Bacitracin Ointment 30 GM TUBE TOP SCH (10:20)
== END 2016-12-16 13:15 | disposition home or self-care (01) | DRG 162 ==
LOC: C.SDS 09:08 → C.9S 14:01 → C.6T 17:07
PROVIDERS: ADMIT Surgery; ATTEND Surgery
PROC: 0VBF0ZZ Excision of Right Spermatic Cord, Open Approach (ICD-10-PCS; 2016-12-13)
PROC: 0YU50JZ Supplement Right Inguinal Region with Synthetic Substitute, Open Approach (ICD-10-PCS; principal; 2016-12-13 10:00)
DX: K40.30 Unilateral inguinal hernia, with obstruction, without gangrene, not specified as recurrent (principal); D17.6 Benign lipomatous neoplasm of spermatic cord; I10 Essential (primary) hypertension; E11.9 Type 2 diabetes mellitus without complications; J45.909 Unspecified asthma, uncomplicated; R42 Dizziness and giddiness; Z79.4 Long term (current) use of insulin